=== PATIENT | female | born 1940 | race Caucasian/White ===

== ENCOUNTER 2017-02-16 11:28 | Inpatient (IN) ==
[2017-02-16 13:02] LABS: MANUAL DIFF NEEDED? NO
[2017-02-16 13:17] LABS: BILIRUBIN URINE NEGATIVE (NEGATIVE); BLOOD URINE TRACE (NEGATIVE); CLARITY CLEAR (CLEAR); COLOR YELLOW; GLUCOSE URINE NEGATIVE (NEGATIVE); LEUKOCYTES URINE 2+ (NEGATIVE); NITRITE URINE NEGATIVE (NEGATIVE); PH URINE 6.5; PROTEIN URINE TRACE mg/dL (NEGATIVE); SP GRAVITY URINE 1.015; UROBILINOGEN URINE 1+(1 mg/dL)
[2017-02-16 13:18] LABS: BASO% 0.4 % (0.0-0.8); EOS# 0.05 X1000 (0.0-0.7); EOS% 0.6 % (0.0-10.0); HEMATOCRIT 43.2 % (37.0-47.0); HEMOGLOBIN 14.6 g/dL (12.0-16.0); IMM GRAN# 0.01 X1000 (0.0-0.04); IMM GRAN% 0.1 % (0.0-0.5); LYMPH# 1.22 X1000 (1.2-3.4); LYMPH% 15.3 % (20.5-51.1); MCH 29.3 PG (27-31); MCHC 33.8 g/dL (33-37); MCV 86.6 FL (81-99); MONO# 0.67 X1000 (0.11-0.59); MONO% 8.4 % (1.7-9.3); MPV 10.2 FL (7.4-10.4); NEUT% 75.2 % (42.2-75.2); PLT 188 X1000 (130-400); RBC 4.99 XMIL (4.2-5.4)
[2017-02-16] MEDS ORDERED: ROCEPHIN 1 GM in NS 50 ML IV ONE (13:32)
[2017-02-16 13:43] LABS: AGAP 10; ALBUMIN 4.4 g/dL (3.5-5.0); ALKALINE PHOSPHATASE 35 U/L (32-104); AMYLASE 53 U/L (20-200); BUN 15 mg/dL (8-22); CALCIUM 9.9 mg/dL (8.8-10.2); CHLORIDE 100 mmol/L (98-107); COSMO 274; GOT 14 U/L (10-30); GPT 12 U/L (10-36); LIPASE 25 U/L (13-60); POTASSIUM 3.6 mmol/L (3.5-5.1); SODIUM 136 mmol/L (136-145); TCO2 26 mmol/L (25-35); TOTAL PROTEIN 7.9 g/dL (6.3-8.3)
[2017-02-16 13:44] LABS: URINE CAST NONE SEEN /LPF; URINE CULTURE PL NEEDED? YES; URINE EPITHELIAL CELLS >10 /HPF (<10); URINE WBC 20-40 /HPF (<10)
[2017-02-16 13:45] LABS: URINE CRYSTAL NONE SEEN /HPF; URINE SOURCE CLEAN CATCH
[2017-02-16] MEDS ORDERED: ZOFRAN IV PRN (16:49)
[2017-02-16] MEDS ORDERED: DEMEROL IV PRN (16:49)
[2017-02-16] MEDS ORDERED: SODIUM CHLORIDE 0.9% INJ SCH (17:00)
[2017-02-16] MEDS: PROTONIX IV SCH (18:42)
[2017-02-16] MEDS: NS 1,000 ML IV SCH (18:42)
[2017-02-16] MEDS: MIRALAX PO SCH (20:10)
[2017-02-17 06:03] LABS: MANUAL DIFF NEEDED? NO
[2017-02-17 06:17] LABS: BASO% 0.2 % (0.0-0.8); EOS# 0.06 X1000 (0.0-0.7); EOS% 0.7 % (0.0-10.0); HEMATOCRIT 42.2 % (37.0-47.0); HEMOGLOBIN 13.9 g/dL (12.0-16.0); IMM GRAN# 0.01 X1000 (0.0-0.04); IMM GRAN% 0.1 % (0.0-0.5); LYMPH# 1.23 X1000 (1.2-3.4); LYMPH% 14.9 % (20.5-51.1); MCH 28.6 PG (27-31); MCHC 32.9 g/dL (33-37); MCV 86.8 FL (81-99); MONO# 0.56 X1000 (0.11-0.59); MONO% 6.8 % (1.7-9.3); MPV 10.9 FL (7.4-10.4); NEUT% 77.3 % (42.2-75.2); PLT 188 X1000 (130-400); RBC 4.86 XMIL (4.2-5.4)
[2017-02-17 06:36] LABS: AGAP 12; BUN 15 mg/dL (8-22); CALCIUM 9.4 mg/dL (8.8-10.2); CHLORIDE 104 mmol/L (98-107); COSMO 280; POTASSIUM 3.4 mmol/L (3.5-5.1); SODIUM 139 mmol/L (136-145); TCO2 23 mmol/L (25-35)
[2017-02-17] MEDS: NS 1,000 ML IV SCH (07:40)
[2017-02-17] MEDS ORDERED: CHOLECALCIFEROL 10000 UNIT PO SCH (10:00)
[2017-02-17] MEDS: MIRALAX PO SCH (17:02)
[2017-02-17] MEDS: CARDIZEM CD PO SCH ×2 (17:02)
[2017-02-17] MEDS: COREG PO SCH (17:03)
[2017-02-17] MEDS: DYAZIDE PO SCH (17:04)
[2017-02-17] MEDS: COZAAR PO SCH (17:04)
[2017-02-17] MEDS: PATIENT'S OWN MED PO SCH (17:05)
[2017-02-17] MEDS: PRAVACHOL PO SCH (17:06)
[2017-02-17] MEDS: PRADAXA PO SCH (17:06)
[2017-02-17] MEDS: ROCEPHIN 1 GM in NS 50 ML IV SCH (17:34)
[2017-02-17] MEDS: PROTONIX IV SCH (17:37)
[2017-02-18 06:01] LABS: AGAP 8; BUN 15 mg/dL (8-22); CALCIUM 8.9 mg/dL (8.8-10.2); CHLORIDE 107 mmol/L (98-107); COSMO 281; POTASSIUM 3.3 mmol/L (3.5-5.1); SODIUM 141 mmol/L (136-145); TCO2 26 mmol/L (25-35)
[2017-02-18] MEDS: MIRALAX PO SCH ×3 (07:34→21:10)
[2017-02-18] MEDS: PRADAXA PO SCH ×3 (07:35→21:10)
[2017-02-18] MEDS: COREG PO SCH (09:55)
[2017-02-18] MEDS: DYAZIDE PO SCH (09:55)
[2017-02-18] MEDS: CARDIZEM CD PO SCH ×2 (09:55)
[2017-02-18] MEDS: COZAAR PO SCH (09:55)
[2017-02-18] MEDS: PRAVACHOL PO SCH (09:55)
[2017-02-18] MEDS: NS 1,000 ML IV SCH ×2 (10:24→10:25)
[2017-02-18] MEDS: PATIENT'S OWN MED PO SCH (10:43)
[2017-02-18] MEDS ORDERED: DULCOLAX PR ONE (12:07)
[2017-02-18] MEDS ORDERED: MILK OF MAGNESIA PO ONE (12:07)
[2017-02-18] MEDS: POTASSIUM CHLORIDE 20 MEQ/SWI 20 MEQ/100 ML IVPB IV SCH ×2 (12:24→15:26)
[2017-02-18] MEDS: PROTONIX IV SCH (17:14)
[2017-02-18] MEDS: ROCEPHIN 1 GM in NS 50 ML IV SCH (17:33)
[2017-02-19] MEDS: NS 1,000 ML IV SCH ×2 (00:11→11:57)
[2017-02-19] MEDS: PRADAXA PO SCH (08:14)
[2017-02-19] MEDS: COZAAR PO SCH (08:14)
[2017-02-19] MEDS: MIRALAX PO SCH (08:14)
[2017-02-19] MEDS: PRAVACHOL PO SCH (08:15)
[2017-02-19] MEDS: COREG PO SCH (08:15)
[2017-02-19] MEDS: CARDIZEM CD PO SCH ×2 (08:15)
[2017-02-19] MEDS: DYAZIDE PO SCH (09:53)
[2017-02-19] MEDS: PATIENT'S OWN MED PO SCH (09:53)
[2017-02-19 12:04] VITALS: BP 116/62
[2017-02-19] MEDS ORDERED: FLAGYL PO SCH (15:00)
[2017-02-20] MEDS ORDERED: LEVAQUIN PO SCH (15:15)
[2017-02-21] MEDS ORDERED: VITAMIN D PO SCH (09:00)
== END 2017-02-19 16:12 | disposition home or self-care (01) ==
LOC: P.MEDSURG 11:28 → P.ED 11:28 → SUATTDRO 16:19 → OBSVTOIN 16:19
PROVIDERS: ATTEND Internal Medicine